=== PATIENT | male | born 1985 | race Caucasian/White ===

== ENCOUNTER 2019-05-05 12:10 | Emergency (ER) | payer OTHER ==
[2019-05-05 12:27] VITALS: BP 127/77; PULSE 82; RESP 18; TEMP 98.8
[2019-05-05] MEDS ORDERED: KETOROLAC 30 MG/ML 1 ML VIAL IM STA (12:55)
--- NOTE | 2019-05-05 13:13 | ED ---
General Adult HPI - General Chief complaint: Back Pain/Injury Stated complaint: [facility] - BACK INJURY Time Seen by Provider: 05/05/19 12:32 Source: patient, RN notes reviewed Mode of arrival: ambulatory Limitations: no limitations - History of Present Illness Initial comments: 33-year-old male with a past medical history of chronic back pain presents to the emergency department for back pain. 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 States his pain is consistent with previous back pain. 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 When he returned to work he was told he has to be seen in the ER to go back. Patient states he knows exactly what this pain is in his had it several times before. Denies any weakness in the lower extremities or any pain radiating to the lower extremities. Denies any bladder or bowel changes. Denies any fevers or chills. Denies saddle anesthesia.Patient has no other complaints at this time including shortness of breath, chest pain, abdominal pain, nausea or vomiting, headache, or visual changes. - Related Data Previous Rx's Medication Instructions Recorded Cyclobenzaprine [Flexeril] 10 mg PO TID #12 tab 05/05/19 Allergies Allergy/AdvReac Type Severity Reaction Status Date / Time No Known Allergies Allergy Verified 05/05/19 12:51 Review of Systems ROS Statement: Those systems with pertinent positive or pertinent negative responses have been documented in the HPI. ROS Other: All systems not noted in ROS Statement are negative. Past Medical History Past Medical History: No Reported History History of Any Multi-Drug Resistant Organisms: None Reported Past Surgical History: No Surgical Hx Reported Past Psychological History: No Psychological Hx Reported Smoking Status: Never smoker Past Alcohol Use History: Rare Past Drug Use History: None Reported General Exam Limitations: no limitations General appearance: alert, in no apparent distress Head exam: Present: atraumatic, normocephalic, normal inspection Eye exam: Present: normal appearance, PERRL, EOMI. Absent: scleral icterus, conjunctival injection, periorbital swelling ENT exam: Present: normal exam, mucous membranes moist Neck exam: Present: normal inspection, full ROM. Absent: tenderness, meningismus, lymphadenopathy Respiratory exam: Present: normal lung sounds bilaterally. Absent: respiratory distress, wheezes, rales, rhonchi, stridor Cardiovascular Exam: Present: regular rate, normal rhythm, normal heart sounds. Absent: systolic murmur, diastolic murmur, rubs, gallop, clicks GI/Abdominal exam: Present: soft, normal bowel sounds. Absent: distended, tenderness, guarding, rebound, rigid Extremities exam: Present: normal capillary refill (Capillary refill less than, DP pulses 2+ in lower extremities bilaterally.), other (Sensation intact in lower extremities bilaterally) Back exam: Absent: CVA tenderness (R), CVA tenderness (L), vertebral tenderness (No thoracic or lumbar spine tenderness) Neurological exam: Present: normal gait Course Vital Signs 05/05/19 12:24 Temperature 98.8 F Pulse Rate 82 Respiratory 18 Rate Blood Pressure 127/77 O2 Sat by Pulse 98 Oximetry Medical Decision Making - Medical Decision Making 33-year-old male presents for back pain. This is acute on chronic back pain. States he has had this type of back pain for 4 years and it sometimes becomes exacerbated. States today he was at work when he pulled up carpet and felt the pain in his back. Denies any red flag symptoms. Neurovascularly intact in the lower extremities. Ambulatory. No lumbar spine tenderness. Patient was given Toradol shot. Pain likely related to lumbar paraspinal muscle spasms. Patient given Toradol shot and muscle relaxer will be prescribed to pharmacy. Recommended he follow-up with Dr. Bullard. Recommended he return if he has any worsening symptoms which were discussed in depth with him. Disposition Clinical Impression: Mechanical back pain Disposition: HOME SELF-CARE Condition: Good Instructions (If sedation given, give patient instructions): Acute Low Back Pain (ED) Additional Instructions: Please take Motrin and Tylenol for pain. Take muscle relaxer as needed. Follow-up with primary care in orthopedics in one to 2 days. If you have any worsening symptoms such as bladder or bowel changes, weakness in the lower extremities, or numbness of the groin or buttock return immediately to the emergency department. Prescriptions: Cyclobenzaprine [Flexeril] 10 mg PO TID #12 tab Is patient prescribed a controlled substance at d/c from ED?: No Referrals: Jewel Bullard DO [Doctor of Osteopathic Medicine] - 1-2 days Felton Martínez MD [REFERRING] - 1-2 days Time of Disposition: 12:58
== END 2019-05-05 14:16 | disposition home or self-care (01) ==
LOC: EC 12:10
DX: M54.5 Low back pain (principal)
CPT/HCPCS: 99283; 96372; J1885

== ENCOUNTER → 2019-05-11 | Outpatient (CLI) | payer OTHER ==
--- NOTE | 2019-05-11 13:16 | XR ---
EXAM TYPE: LUMBAR SPINE X RAY SERIES COMPARISON: NONE HISTORY: Pain TECHNIQUE: 3 views are submitted. FINDINGS: Alignment is anatomic. The pedicles are intact. The transverse processes are intact. There is no s pondylolysis or spondylolisthesis. 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 IMPRESSION: 1. No acute process. There is concern for a disc herniation correlate with MRI.
== END | disposition home or self-care (01) ==
LOC: RADXRMAIN 12:32
PROVIDERS: ATTEND Emergency Medicine
DX: S39.012A Strain of muscle, fascia and tendon of lower back, initial encounter (principal)
CPT/HCPCS: 72100

== ENCOUNTER 2022-04-24 15:24 | Inpatient (IN) | payer OTHER ==
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
[2022-04-24] MEDS ORDERED: SODIUM CHLORIDE 0.9% 1,000 ML IV STA (15:33)
[2022-04-24] MEDS ORDERED: ACETAMINOPHEN TAB 500 MG TAB PO STA (15:34)
[2022-04-24 15:54] LABS: Basophils % (A) 0 %; Eosinophils # (A) 0.1 k/uL (0-0.7); Eosinophils % (A) 0 %; HGB 14.1 gm/dL (13.0-17.5); Lymphocytes # (A) 1.4 k/uL (1.0-4.8); Lymphocytes % (A) 10 %; MCH 29.5 pg (25.0-35.0); MCHC 32.8 g/dL (31.0-37.0); Mean Platelet Volume 8.5; Monocytes # (A) 0.7 k/uL (0-1.0); Monocytes % (A) 5 %; Neutrophils # (A) 11.9 k/uL (1.3-7.7); Neutrophils % (A) 84 %; Platelet Count 216 k/uL (150-450); RBC 4.78 m/uL (4.30-5.90); RDW 12.6 % (11.5-15.5); WBC 14.2 k/uL (3.8-10.6)
[2022-04-24 16:09] LABS: ALT 30 U/L (4-49); AST 35 U/L (17-59); African American GFR (CKD) >90 (>60 ml/min/1.73 sqM); Albumin 4.6 g/dL (3.5-5.0); Alkaline Phosphatase 75 U/L (38-126); Anion Gap 14 mmol/L; Blood Urea Nitrogen 24 mg/dL (9-20); Calcium 9.6 mg/dL (8.4-10.2); Carbon Dioxide 21 mmol/L (22-30); Chloride 103 mmol/L (98-107); Glucose 102 mg/dL (74-99); Non-African American GFR(CKD) 84 (>60 ml/min/1.73 sqM); Potassium 4.2 mmol/L (3.5-5.1); Sodium 138 mmol/L (137-145); Total Bilirubin 0.5 mg/dL (0.2-1.3); Total Protein 7.1 g/dL (6.3-8.2)
[2022-04-24] MEDS ORDERED: ASPIRIN 81 MG PO STA (16:53)
--- NOTE | 2022-04-24 17:48 | XR ---
EXAMINATION TYPE: XR chest 1V portable DATE OF EXAM: 04/24/2022 COMPARISON: 07/02/2015 HISTORY: Headache and weakness TECHNIQUE: FINDINGS: Heart is normal. Lungs are clear. Diaphragm is normal. There are chest leads. Bony thorax i s intact. IMPRESSION: No active cardiopulmonary disease. Normal heart. No change.
[2022-04-24 17:51] LABS: INR 1.1 (<1.2); Prothrombin Time 11.4 sec (9.0-12.0)
[2022-04-24] MEDS: SODIUM CHLORIDE 0.9% 1,000 ML IV SCH (18:01)
[2022-04-24 18:02] LABS: Partial Thromboplastin Time 19.4 sec (22.0-30.0)
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
[2022-04-25 06:50] LABS: Basophils # (A) 0.1 k/uL (0-0.2); Basophils % (A) 1 %; Eosinophils # (A) 0.3 k/uL (0-0.7); Eosinophils % (A) 3 %; HGB 14.2 gm/dL (13.0-17.5); Lymphocytes % (A) 44 %; MCH 28.8 pg (25.0-35.0); MCHC 31.6 g/dL (31.0-37.0); MCV 91.1 fL (80.0-100.0); Mean Platelet Volume 8.4; Monocytes # (A) 0.7 k/uL (0-1.0); Monocytes % (A) 7 %; Neutrophils % (A) 44 %; Platelet Count 200 k/uL (150-450); RBC 4.94 m/uL (4.30-5.90); RDW 12.7 % (11.5-15.5); WBC 9.1 k/uL (3.8-10.6)
[2022-04-25 07:05] LABS: ALT 29 U/L (4-49); AST 39 U/L (17-59); African American GFR (CKD) >90 (>60 ml/min/1.73 sqM); Alkaline Phosphatase 67 U/L (38-126); Anion Gap 10 mmol/L; Blood Urea Nitrogen 17 mg/dL (9-20); Calcium 8.5 mg/dL (8.4-10.2); Carbon Dioxide 20 mmol/L (22-30); Chloride 107 mmol/L (98-107); Glucose 90 mg/dL (74-99); Non-African American GFR(CKD) >90 (>60 ml/min/1.73 sqM); Potassium 3.9 mmol/L (3.5-5.1); Sodium 137 mmol/L (137-145); Total Bilirubin 0.7 mg/dL (0.2-1.3); Total Protein 6.4 g/dL (6.3-8.2)
[2022-04-25] MEDS: SODIUM CHLORIDE 0.9% 1,000 ML IV SCH ×2 (11:37→21:39)
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
[2022-04-25] MEDS ORDERED: ACETAMINOPHEN TAB 500 MG TAB PO PRN (23:39)
[2022-04-26 08:18] VITALS: TEMP 96.7
[2022-04-26] MEDS ORDERED: ASPIRIN 81 MG PO SCH (10:30)
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
[2022-04-26] MEDS ORDERED: ATORVASTATIN 40 MG TAB PO SCH (12:45)
[2022-04-26] MEDS ORDERED: METOPROLOL TARTRATE 25 MG TAB PO SCH (12:45)
[2022-04-26] MEDS: SODIUM CHLORIDE 0.9% 1,000 ML IV SCH (13:30)
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
[2022-04-26 16:56] VITALS: BP 111/68; PULSE 61; RESP 18
--- NOTE | 2022-04-26 17:52 | CA ---
Transthoracic Echo Report Name: Saulo Doe Age: 36 Gender: M : 1985 Exam Date: 04/26/2022 09:07 Exam Location: [place] [facility] Ht (in): 69 Wt (lb): 240 Ordering Physician: Carlos Hoff MD ([id number]) Attending/Referring Phys: [facility] Staff Nurse Caroilne Ribera RDCS Procedure CPT: Indications: elevated trops Cardiac Hx: Technical Quality: Contrast 1: Total Dose (mL): Contrast 2: Total Dose (mL): MEASUREMENTS (Male / Female) Normal Values 2D ECHO LV Diastolic Diameter PLAX 4.6 cm 4.2 - 5.9 / 3.9 - 5.3 cm LV Systolic Diameter PLAX 3.0 cm IVS Diastolic Thickness 1.2 cm 0.6 - 1.0 / 0.6 - 0.9 cm LVPW Diastolic Thickness 1.3 cm 0.6 - 1.0 / 0.6 - 0.9 cm LV Relative Wall Thickness 0.5 RV Internal Dim ED PLAX 3.2 cm LA Systolic Diameter LX 3.6 cm 3.0 - 4.0 / 2.7 - 3.8 cm M-MODE Aortic Root Diameter MM 2.8 cm LA Systolic Diameter MM 3.7 cm LA Ao Ratio MM 1.3 MV E Point Septal Separation 0.4 cm AV Cusp Separation MM 1.7 cm DOPPLER MV Area PHT 4.0 cm??? Mitral E Point Velocity 105.2 cm/s Mitral A Point Velocity 75.9 cm/s Mitral E to A Ratio 1.4 MV Deceleration Time 191.9 ms MV E' Velocity 9.6 cm/s Mitral E to MV E' Ratio 11.0 FINDINGS Left Ventricle Normal left ventricular size, wall thickness, systolic function with no obvious regional wall motion abnormalities. Right Ventricle The right ventricle is normal in size and function. Right Atrium The right atrium is normal in size. Left Atrium The left atrium is normal in size. Mitral Valve Structurally normal mitral valve without significant stenosis or prolapse. There is mild mitral regurgitation. Aortic Valve Structurally normal aortic valve without significant sclerosis or stenosis. There is no aortic regurgitation. Tricuspid Valve Structurally normal tricuspid valve without significant stenosis. Pulmonary artery systolic pressure is normal. Pulmonic Valve Structurally normal pulmonic valve without significant stenosis. There is no pulmonic regurgitation. Pericardium Normal pericardium without effusion. Aorta Normal aortic root dimension. CONCLUSIONS Normal LV function. Mild mitral regurgitation Previewed by: Dr. Harrison Adamson MD (Electronically Signed) Final Date: 26 April 2022 17:52
[2022-04-26] MEDS ORDERED: HEPARIN SODIUM,PORCINE/PF 5,000 UNIT/0.5 ML SYRINGE SQ SCH (21:00)
[2022-04-26] MEDS ORDERED: FAMOTIDINE 20 MG/2 ML VIAL IV SCH (21:00)
== END 2022-04-26 19:20 | disposition home or self-care (01) | DRG 917 ==
LOC: EC 15:24 → 3SCARD 17:13
PROVIDERS: ADMIT Internal Medicine; ATTEND Internal Medicine
DX: T59.811A Toxic effect of smoke, accidental (unintentional), initial encounter (principal); I21.4 Non-ST elevation (NSTEMI) myocardial infarction; Z68.43 Body mass index [BMI] 50.0-59.9, adult; I24.9 Acute ischemic heart disease, unspecified; I34.0 Nonrheumatic mitral (valve) insufficiency; D72.829 Elevated white blood cell count, unspecified; E66.9 Obesity, unspecified; X30.XXXA Exposure to excessive natural heat, initial encounter
CPT/HCPCS: 36415; 71045; 80053; 82375; 83605; 84484; 85025; 85610; 85730; 93306; 96360; 96361; 99285

== ENCOUNTER 2022-11-19 23:57 | Emergency (ER) | payer OTHER ==
[2022-11-20 00:05] VITALS: BP 131/83; TEMP 98.4
[2022-11-20] MEDS ORDERED: TOPICAL SKIN ADHESIVE 1 EACH AMP TOPICAL ONE (01:16)
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
[2022-11-20 01:48] VITALS: PULSE 78; RESP 20
== END 2022-11-20 01:56 | disposition home or self-care (01) ==
LOC: EC 23:57
DX: S01.511A Laceration without foreign body of lip, initial encounter (principal); W22.8XXA Striking against or struck by other objects, initial encounter
CPT/HCPCS: 12011; 99283

== ENCOUNTER → 2024-11-01 | Outpatient (CLI) | payer OTHER ==
--- NOTE | 2024-11-03 19:37 | PE ---
EXAMINATION TYPE: PET CT fusion skull to thigh DATE OF EXAM: 11/01/2024 CLINICAL INDICATION:Male, 39 years old with history of C18.0 colon ca; TECHNIQUE: Following the intravenous administration of 8.5 mCi of F-18 FDG, whole body images are p erformed from the skull base to the midthigh. Images are reviewed on the computer in the coronal, ax ial, and sagittal planes. Reconstructed rotating images are created on independent workstation and r eviewed on the computer. A non-contrast CT is performed in conjunction with the PET scan. Glucose l evel 101 mg/dL CT DLP: 574.46 mGycm, Automated exposure control for dose reduction was used. COMPARISON: CT None, PET/CT None, MRI: None FINDINGS: Mediastinal SUV mean is 1.5. Hepatic parenchyma SUV mean is 2.1. SKULL BASE AND NECK: Right sided palatine tonsilloliths. There is FDG activity within both palatine tonsils with right gre ater than left. Demonstrates a max SUV of 7.4 on the right and 5.2 on the left. CHEST, MEDIASTINUM, AND HILAR REGION: No suspicious radiotracer activity. ABDOMEN AND PELVIS: Circumferential irregular wall thickening involving the sigmoid colon measuring approximately 4.4 cm in length. This demonstrates FDG activity with a maximum SUV of 17.7. Additional cyst adjacent subcen timeter calcified nodules without FDG activity likely representing treated lymph nodes. MUSCULOSKELETAL STRUCTURES: Focal radiotracer uptake identified within the left T4 transverse process with a max SUV of 13.5. OTHER CT: Right anterior chest wall IJ Mediport catheter distal tip terminating in the superior cavoa trial junction. Bilateral gynecomastia. IMPRESSION: 1. FDG avid sigmoid colon irregular wall thickening consistent with known malignancy. 2. Perisigmoid colon subcentimeter calcified nodules likely representing treated metastasis. No susp icious FDG activity. 3. Focal FDG activity within the left T4 transverse process concerning for metastasis. 4. Right palatine tonsilliths with mild FDG activity within the bilateral palatine tonsils suggestin g inflammation/infection. [facility], , 11/03/2024 7:35 PM
== END | disposition home or self-care (01) ==
LOC: RADPETMAIN 06:51
PROVIDERS: ATTEND Internal Medicine Hematology & Oncology
DX: C18.0 Malignant neoplasm of cecum (principal); K63.89 Other specified diseases of intestine; J35.8 Other chronic diseases of tonsils and adenoids
CPT/HCPCS: 78815; A9552